=== PATIENT | male | born 1990 | race Caucasian/White ===

== ENCOUNTER 2017-06-28 20:51 | Emergency (ER) | payer OTHER, BC ==
[2017-06-28 21:02] VITALS: BP 142/84; PULSE 104; RESP 18; TEMP 98.2; O2SAT 99
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
== END 2017-06-28 23:18 | disposition home or self-care (01) ==
LOC: H.ER 20:51
DX: S63.301A Traumatic rupture of unspecified ligament of right wrist, initial encounter (principal); S40.021A Contusion of right upper arm, initial encounter; S53.401A Unspecified sprain of right elbow, initial encounter; V43.52XA Car driver injured in collision with other type car in traffic accident, initial encounter; Y93.9 Activity, unspecified